=== PATIENT | male | born 1945 | race Caucasian/White ===

== ENCOUNTER 2017-10-27 17:40 | Observation (INO) | payer MEDICARE ==
[~2017-10-27] VITALS: Ht 177.8 cm; Wt 92.5 kg
[~2017-10-27 17:40] MED LIST: AMLO2.5T PO; FINA5TAB2 PO; LISI10TA3 PO; OMEGCAP PO; OMEP20TA93 PO
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
[2017-10-27 18:00] VITALS: BP 140/73; PULSE 90; RESP 18; TEMP 98.7; O2SAT 95
[2017-10-27] MEDS ORDERED: SODIUM CHLORIDE 0.9% FLUSH 10 ML FLUSH IVF PRN (18:00)
[2017-10-27] MEDS ORDERED: AMLO5TAB2 PO (18:06)
[2017-10-27 18:49] LABS: CHLORIDE 107 MEQ/L (98-107); SODIUM (NA) 139 MEQ/L (136-145)
[2017-10-27 18:53] LABS: ANION GAP 5 MEQ/L (5-15); BICARBONATE 26.6 MEQ/L (21.0-32.0); BLOOD UREA NITROGEN 16 MG/DL (7-18); MAGNESIUM 1.9 MG/DL (1.5-2.5)
--- NOTE | 2017-10-27 18:53 | RADRPT ---
EXAM DATE/TIME: 10/27/2017 18:21 [facility] COMPARISON: No previous studies available for comparison. INDICATIONS : Syncope. RADIATION DOSE: 57.27 CTDIvol (mGy) MEDICAL HISTORY : Hypertension. Gastroesophageal reflux disease. Hernia, hiatal. SURGICAL HISTORY : Tonsillectomy. ENCOUNTER: Initial ACUITY: 1 day PAIN SCALE: 0/10 LOCATION: cranial TECHNIQUE: Multiple contiguous axial images were obtained of the head. Using automated exposure control and adjustment of the mA and/or kV according to patient size, radiation dose was kept as low as reasonably achievable to obtain optimal diagnostic quality images. DICOM format image data is av ailable electronically for review and comparison. FINDINGS: CEREBRUM: The lateral ventricles are mildly prominent, borderline size for patient's age. The 3r d and 4th ventricle are normal in size. The sulci and basal cisterns are not dilated there is a 5 mm round hyperdense lesion in the anterior 3rd ventricle having appearance and location characteristic of a colloid cyst. No evidence of cavum verge or cavum septum pellucidum... No evidence of midline shift, mass lesion, hemorrhage or acute infarction. No extra-axial fluid collections are seen. POSTERIOR FOSSA: The cerebellum and brainstem are intact. The 4th ventricle is midline. The cer ebellopontine angle is unremarkable. EXTRACRANIAL: There is opacification of the right frontal, ethmoid, and visualized portions of th e axillary sinuses. Only minimal mucosal thickening in the dependent sphenoid sinus. The visualized portion of the orbits is intact. SKULL: The calvaria is intact. No evidence of skull fracture. CONCLUSION: 1. 5 mm colloid cyst in the anterior 3rd ventricle with mild dilation of the lateral ventricles. 2. Pansinus disease. Jovon Christina MD on October 27, 2017 at 18:41 Board Certified Radiologist. This report was verified electronically.
[2017-10-27 18:56] LABS: ALT (GPT) 21 U/L (12-78); AST (GOT) 29 U/L (15-37); GLOMERULAR FILTRATION RATE 60 ML/MIN (>89)
[2017-10-27 18:58] LABS: AUTOMATED NEUTROPHIL # 13.1 TH/MM3 (1.8-7.7); BASOPHIL # 0.4 TH/MM3 (0-0.2); BASOPHIL % 2.7 % (0.0-2.0); EOSINOPHIL # 0.1 TH/MM3 (0-0.4); EOSINOPHIL % 0.4 % (0.0-4.0); HEMATOCRIT 40.2 % (39.0-51.0); LYMPH % 6.8 % (9.0-44.0); LYMPHOCYTE # 1.1 TH/MM3 (1.0-4.8); MEAN CELL VOLUME 80.3 FL (80.0-100.0); MEAN CORPUSCULAR HEMOGLOBIN 24.5 PG (27.0-34.0); MEAN CORPUSCULAR HGB CONC 30.6 % (32.0-36.0); NEUT % 81.1 % (16.0-70.0); PLATELET COUNT 199 TH/MM3 (150-450); RED BLOOD COUNT 5.01 MIL/MM3 (4.50-5.90); RED CELL DISTRIBUTION WIDTH 14.4 % (11.6-17.2); TOTAL BILIRUBIN ADULT 0.3 MG/DL (0.2-1.0); WHITE BLOOD COUNT 16.1 TH/MM3 (4.0-11.0)
[2017-10-27 18:59] LABS: ALKALINE PHOSPHATASE 70 U/L (45-117); CREATINE KINASE 140 U/L (39-308)
[2017-10-27 19:03] LABS: HEMO FLAGS AUTO DIFF
[2017-10-27 19:04] LABS: APTT (PATIENT) 19.6 SEC (24.3-30.1); INTERNATIONAL NORMALIZED RATIO 1.1 RATIO; PROTHROMBIN TIME - PATIENT 11.6 SEC (9.8-11.6)
--- NOTE | 2017-10-27 19:20 | RADRPT ---
EXAM DATE/TIME: 10/27/2017 18:36 [facility] COMPARISON: CHEST SINGLE AP, October 16, 2013, 1:47. INDICATIONS : Syncopal episode today. MEDICAL HISTORY : Hypertension. SURGICAL HISTORY : None. ENCOUNTER: Initial ACUITY: 1 day PAIN SCORE: 0/10 LOCATION: Bilateral chest FINDINGS: The lungs are symmetrically aerated without local consolidative trace. The heart is mildly enlarged, stable from prior examination in 2012. There is a retrocardiac opacity with air-fluid level suggest ing a moderately large hiatus hernia. A similar appearing structure was seen on prior examination in 2012. Both hemidiaphragms are well delineated. CONCLUSION: 1. No infiltrates seen. 2. Probable large hiatus hernia. Jovon Christina MD on October 27, 2017 at 19:17 Board Certified Radiologist. This report was verified electronically.
[2017-10-27 19:25] LABS: CKMB 2.1 NG/ML (0.5-3.6)
[2017-10-27 19:31] LABS: SCAN/DIFF AUTO DIFF CONFIRMED
[2017-10-27] MEDS ORDERED: IOHEXOL 350 MG/ML 10 ML VIAL (for RAD DIAG) IVCONTRAST ONE (20:08)
[2017-10-27 20:15] VITALS: BP 151/90; PULSE 87; RESP 16; O2SAT 95
--- NOTE | 2017-10-27 20:19 | RADRPT ---
EXAM DATE/TIME: 10/27/2017 19:49 [facility] COMPARISON: CHEST SINGLE AP, October 27, 2017, 18:36. INDICATIONS : Syncope. Evaluate for embolism. IV CONTRAST: 100 cc Omnipaque 350 (iohexol) IV RADIATION DOSE: 18.99 CTDIvol (mGy) MEDICAL HISTORY : Hypertension. Gastroesophageal reflux disease. Hernia, hiatal. SURGICAL HISTORY : None. ENCOUNTER: Initial ACUITY: 1 day PAIN SCALE: 0/10 LOCATION: chest TECHNIQUE: Volumetric scanning of the chest was performed using a pulmonary embolism protocol MIP images were re constructed. Using automated exposure control and adjustment of the mA and/or kV according to patien t size, radiation dose was kept as low as reasonably achievable to obtain optimal diagnostic quality images. DICOM format image data is available electronically for review and comparison. Follow-up recommendations for detected pulmonary nodules are based at a minimum on nodule size and pa tient risk factors according to Fleischner Society Guidelines. FINDINGS: PULMONARY ARTERIES: No filling defects are seen in the pulmonary arteries through the segmental level. LUNGS: Prominent interstitial markings with some honeycombing at the peripheral 3rd of both lungs characteri stic of pulmonary fibrosis. PLEURAE: There is no pleural thickening or pleural effusion. MEDIASTINUM: Enlarged subcarinal node measuring 2.9 cm, enlarged azygos node measuring 1.7 cm and fullness in the perihilar region bilaterally suggesting mild bilateral charissa-hilar adenopathy. MISCELLANEOUS: Large size hernia with intrathoracic stomach. CONCLUSION: 1. The study is negative for pulmonary embolism. 2. Intrathoracic stomach. 3. Peripheral interstitial lung disease and evidence of adenopathy in the mediastinum and bilateral h ilar regions. Jovon Christina MD on October 27, 2017 at 20:13 Board Certified Radiologist. This report was verified electronically.
--- NOTE | 2017-10-27 20:45 | EKG ---
Date Performed: 10/27/2017 Time Performed: 18:16:02 PTAGE: 72 years EKG: Sinus rhythm NONSPECIFIC T-WAVE ABNORMALITY BORDERLINE ECG Compared to prior electrocardiogram, rate has increase d and Nonspecific T wave changes are more marked . PREVIOUS TRACING : 10/16/2013 08.11 DOCTOR: Jose Eduardo Taylor Interpretating Date/Time 10/29/2017 07:54:31
[2017-10-27] MEDS ORDERED: AMOXICILLIN/CLAVULANATE K 875 MG TAB PO ONE (21:00)
[2017-10-27] MEDS ORDERED: SODIUM CHLORIDE 0.9% FLUSH 10 ML FLUSH IV FLUSH PRN (21:15)
[2017-10-27 21:30] VITALS: BP 147/94; PULSE 88; RESP 16; O2SAT 95
[2017-10-27] MEDS ORDERED: PANTOPRAZOLE SOD 20 MG DELAYED RELEASE TAB PO PRN (21:30)
[2017-10-27 22:00] VITALS: BP 150/84; PULSE 79; RESP 18; TEMP 97.8; O2SAT 96
[2017-10-27 22:03] VITALS: BP 140/84
[2017-10-27 23:00] VITALS: PULSE 81
[2017-10-27] MEDS ORDERED: GADODIAMIDE PF 287 MG/ML 5 ML VIAL (for RAD MRI) IV PUSH ONE (23:09)
--- NOTE | 2017-10-27 23:37 | RADRPT ---
EXAM DATE/TIME: 10/27/2017 22:48 [facility] COMPARISON: No previous studies available for comparison. INDICATIONS : Syncope. Colloid cyst. CONTRAST: 18 cc Omniscan (gadodiamide) IV MEDICAL HISTORY : Hypertension. SURGICAL HISTORY : Tonsillectomy. ENCOUNTER: Subsequent ACUITY: 1 day PAIN SCORE: 0/10 LOCATION: cranial TECHNIQUE: Multiplanar, multisequence MRI of the brain was performed both prior to and following the administrat ion of paramagnetic contrast. FINDINGS: CEREBRUM: The ventricles are normal for age. No evidence of midline shift, mass lesion, hemorrhage or acute in farction. No extraaxial fluid collections are seen. The pituitary gland and suprasellar cistern are normal in configuration. WHITE MATTER: There some scattered small areas of increased signal within the cerebral white matter. POSTERIOR FOSSA: The cerebellum and brainstem are intact. The 4th ventricle is midline. The cerebellopontine angle is unremarkable. The cerebellar tonsils are normal in position. DIFFUSION IMAGING: No focal areas of restricted diffusion are seen. No evidence of acute infarction. EXTRACRANIAL: The visualized portions of the orbits are unremarkable. There is mucosal disease seen throughout the sinuses. POST-CONTRAST: No abnormal areas of parenchymal or dural enhancement. No evidence of blood-brain barrier breakdown. CONCLUSION: 1. No acute intracranial abnormality seen. 2. Scattered small focal areas of demyelination likely secondary to small vessel ischemic change. 3. Sinus disease. Miguel A Jain MD on October 27, 2017 at 23:32 Board Certified Radiologist. This report was verified electronically.
[2017-10-28] VITALS: BP 150/84; PULSE 63; RESP 18; TEMP 97.8
[2017-10-28 04:00] VITALS: BP 144/77; PULSE 70; RESP 18; TEMP 97.8; O2SAT 95
[2017-10-28 06:24] LABS: AUTOMATED NEUTROPHIL # 7.2 TH/MM3 (1.8-7.7); BASOPHIL # 0.1 TH/MM3 (0-0.2); BASOPHIL % 0.6 % (0.0-2.0); EOSINOPHIL # 0.2 TH/MM3 (0-0.4); EOSINOPHIL % 1.9 % (0.0-4.0); HEMATOCRIT 38.5 % (39.0-51.0); LYMPH % 17.2 % (9.0-44.0); LYMPHOCYTE # 1.8 TH/MM3 (1.0-4.8); MEAN CELL VOLUME 79.6 FL (80.0-100.0); MEAN CORPUSCULAR HEMOGLOBIN 24.5 PG (27.0-34.0); MEAN CORPUSCULAR HGB CONC 30.7 % (32.0-36.0); MONO % 10.1 % (0.0-8.0); NEUT % 70.2 % (16.0-70.0); PLATELET COUNT 236 TH/MM3 (150-450); RED BLOOD COUNT 4.83 MIL/MM3 (4.50-5.90); RED CELL DISTRIBUTION WIDTH 14.6 % (11.6-17.2); WHITE BLOOD COUNT 10.3 TH/MM3 (4.0-11.0)
[2017-10-28 06:33] LABS: CHLORIDE 106 MEQ/L (98-107); POTASSIUM 3.8 MEQ/L (3.5-5.1); SODIUM (NA) 140 MEQ/L (136-145)
[2017-10-28 06:37] LABS: ANION GAP 9 MEQ/L (5-15); BICARBONATE 25.2 MEQ/L (21.0-32.0)
[2017-10-28 06:38] LABS: BLOOD UREA NITROGEN 12 MG/DL (7-18)
[2017-10-28 06:41] LABS: GLOMERULAR FILTRATION RATE 83 ML/MIN (>89)
[2017-10-28 06:59] LABS: HEMO FLAGS AUTO DIFF
[2017-10-28 07:43] LABS: SCAN/DIFF AUTO DIFF CONFIRMED
[2017-10-28 08:00] VITALS: BP 152/102; PULSE 66; PULSE 79; RESP 16; TEMP 97.3; O2SAT 95
[2017-10-28] MEDS: SODIUM CHLORIDE 0.9% FLUSH 10 ML FLUSH IV FLUSH SCH ×2 (09:00→21:29)
[2017-10-28] MEDS: AMOXICILLIN/CLAVULANATE K 875 MG TAB PO SCH ×3 (09:00→21:29)
[2017-10-28] MEDS: FINASTERIDE 5 MG TAB PO SCH ×2 (09:00→10:32)
[2017-10-28] MEDS: LISINOPRIL 10 MG TAB PO SCH ×2 (09:00→10:32)
[2017-10-28] MEDS ORDERED: NON-FORMULARY DRUG (Fish Oil-Cholecalciferol (Omega-3 Fish Oil/Vitamin) 1 CAP) PO SCH (09:00)
--- NOTE | 2017-10-28 09:20 | RADRPT ---
EXAM DATE/TIME: 10/28/2017 07:51 [facility] COMPARISON: No previous studies available for comparison. INDICATIONS : Syncope. MEDICAL HISTORY : Hyperparathyroidism. Gastroesophageal reflux disease. Hiatal hernia. BPH. SURGICAL HISTORY : Tonsillectomy. Bilateral cataract. ENCOUNTER: Initial ACUITY: 1 day PAIN SCORE: 0/10 LOCATION: Bilateral neck PEAK SYSTOLIC VELOCITIES (cm/sec): ICA/CCA RATIO: Right: 0.9 Left: 1.2 ICA: Right: 96 Left: 75 CCA: Right: 110 Left: 75 ECA: Right: 127 Left: 102 VERTEBRAL: Right: 42 antegrade Left: 39 antegrade Elevated flow velocities and ICA/CCA ratios have been found to correlate with increased degrees of vessel stenosis, calculated as percentage of diameter relative to a normal segment of distal ICA/CCA FINDINGS: RIGHT CAROTID: There is no evidence for a hemodynamically significant carotid stenosis. Minimal int imal hyperplasia is present with scattered calcific plaque. LEFT CAROTID: There is no evidence for a hemodynamically significant carotid stenosis. Minimal inti mal hyperplasia is present with scattered calcific plaque. VERTEBRAL ARTERIES: Flow is antegrade in both vertebral arteries. MISCELLANEOUS: There are no ancillary masses or adenopathy. CONCLUSION: Negative examination for a hemodynamically significant carotid stenosis. Board Certified Radiologist. This report was verified electronically.
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
[2017-10-28] MEDS ORDERED: PNEUMOCOCCAL POLYVALENT INJ 25 MCG/0.5 ML SYR IM ONE (10:00)
[2017-10-28] MEDS ORDERED: INFLUENZA VIRUS VACCINE (QUADRIVALENT) 0.5 ML SYR IM ONE (10:00)
[2017-10-28] MEDS: amLODIPine BESYLATE 5 MG TAB PO SCH ×2 (10:27→10:32)
[2017-10-28 12:00] VITALS: BP 150/94; PULSE 71; RESP 14; TEMP 97.2; O2SAT 95
[2017-10-28 16:00] VITALS: BP 140/96; PULSE 71; RESP 14; TEMP 97.2; O2SAT 95
--- NOTE | 2017-10-28 19:45 | ECHRPT ---
Indication: Syncope and collapse CONCLUSIONS The left ventricular systolic function is normal with an estimated ejection fraction in the range of 55-60%. Wall thickness is normal. Normal left ventricular size. There is mild tricuspid valve regurgitation. The estimated pulmonary arterial pressure is 34 mmHg. Trace aortic valve regurgitation. There is a small pericardial effusion present. BP: / HR: 62 Rhythm: Sinus MEASUREMENTS (Male / Female) Normal Values Technical Quality:Good 2D ECHO LV Diastolic Diameter PLAX 4.0 cm 4.2 - 5.9 / 3.9 - 5.3 cm LV Systolic Diameter PLAX 3.0 cm IVS Diastolic Thickness 1.0 cm 0.6 - 1.0 / 0.6 - 0.9 cm LVPW Diastolic Thickness 1.0 cm 0.6 - 1.0 / 0.6 - 0.9 cm LV Relative Wall Thickness 0.5 LVOT Diameter 1.8 cm M-MODE Aortic Root Diameter MM 2.5 cm LA Systolic Diameter MM 2.7 cm LA Ao Ratio MM 1.1 AV Cusp Separation MM 2.1 cm DOPPLER AV Peak Velocity 130.0 cm/s AV Peak Gradient 6.8 mmHg AI Peak Velocity 328.5 cm/s AI Peak Gradient 43.2 mmHg AI Pressure Half Time 968.5 ms LVOT Peak Velocity 97.2 cm/s LVOT Peak Gradient 3.8 mmHg AV Area Cont Eq pk 1.9 cm Mitral E Point Velocity 61.7 cm/s Mitral A Point Velocity 88.8 cm/s Mitral E to A Ratio 0.7 LV E' Lateral Velocity 7.9 cm/s Mitral E to LV E' Lateral Ratio 7.8 LV E' Septal Velocity 4.5 cm/s Mitral E to LV E' Septal Ratio 13.8 TR Peak Velocity 244.0 cm/s TR Peak Gradient 23.8 mmHg Right Atrial Pressure 10.0 mmHg Pulmonary Artery Systolic Pressu 33.8 mmHg Right Ventricular Systolic Press 33.8 mmHg PV Peak Velocity 106.0 cm/s PV Peak Gradient 4.5 mmHg FINDINGS LEFT VENTRICLE The left ventricular systolic function is normal with an estimated ejection fraction in the range of 55-60%. Wall thickness is normal. Normal left ventricular size. RIGHT VENTRICLE Normal right ventricular size and systolic function. LEFT ATRIUM The left atrial size is normal. RIGHT ATRIUM The right atrial size is normal. ATRIAL SEPTUM Normal atrial septal thickness without atrial level shunting by limited color doppler interrogation. AORTA The aortic root and proximal ascending aorta are normal in size on limited imaging. MITRAL VALVE Structurally normal mitral valve. No mitral valve stenosis or regurgitation. AORTIC VALVE Trace aortic valve regurgitation. TRICUSPID VALVE There is mild tricuspid valve regurgitation. The estimated pulmonary arterial pressure is 33.8 mmHg. PULMONARY VALVE No pulmonary valve regurgitation or stenosis. VESSELS The inferior vena cava is normal in size. PERICARDIUM There is a small pericardial effusion present. Inna Rahman MD, FACC (Electronically Signed) Final Date:28 October 2017 19:43
[2017-10-28 20:00] VITALS: BP 135/84; PULSE 62; PULSE 70; RESP 20; TEMP 97.2; O2SAT 95
[2017-10-29] VITALS: BP 128/79; PULSE 64; RESP 20; TEMP 97.1; O2SAT 95
[2017-10-29 04:00] VITALS: BP 122/77; PULSE 63; RESP 20; TEMP 97.6; O2SAT 94
[2017-10-29 08:00] VITALS: BP 148/91; PULSE 61; PULSE 70; RESP 16; TEMP 97; O2SAT 98
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
[2017-10-29] MEDS: AMOXICILLIN/CLAVULANATE K 875 MG TAB PO SCH (10:31)
[2017-10-29] MEDS: SODIUM CHLORIDE 0.9% FLUSH 10 ML FLUSH IV FLUSH SCH (10:32)
[2017-10-29] MEDS: LISINOPRIL 10 MG TAB PO SCH (10:32)
[2017-10-29] MEDS: FINASTERIDE 5 MG TAB PO SCH (10:32)
[2017-10-29] MEDS: amLODIPine BESYLATE 5 MG TAB PO SCH (10:32)
[2017-10-29 12:00] VITALS: BP 134/89; PULSE 66; RESP 16; TEMP 97.2; O2SAT 98
[2017-10-29] MEDS ORDERED: ASPIRIN EC 81 MG TABEC PO SCH (12:00)
--- NOTE | 2017-10-29 13:27 | HHI.PR ---
Subjective Remarks He has no symptoms or complaints. He was seen by neurology last evening who recommended a cardiology evaluation which was just done. He was seen by Dr Reza according to the nurse and he cleared the patient for discharge to followup with him. He has a Holter monitor on currently that will be finished at 5:30 PM today. Objective Vitals Vital Signs Date Time Temp Pulse Resp B/P (MAP) Pulse Ox O2 Delivery O2 Flow Rate FiO2 10/29/17 12:00 97.2 66 16 134/89 (104) 98 10/29/17 08:00 97.0 61 16 148/91 (110) 98 10/29/17 08:00 70 10/29/17 04:00 97.6 63 20 122/77 (92) 94 10/29/17 00:00 97.1 64 20 128/79 (95) 95 10/28/17 20:00 62 10/28/17 20:00 97.2 70 20 135/84 (101) 95 10/28/17 16:00 97.2 71 14 140/96 (111) 95 Result Diagram: 10/28/17 0505 10/28/17 0505 Other Results Laboratory Tests Test 10/27/17 18:02 10/28/17 00:30 10/28/17 05:05 White Blood Count 16.1 TH/MM3 10.3 TH/MM3 Red Blood Count 5.01 MIL/MM3 4.83 MIL/MM3 Hemoglobin 12.3 GM/DL 11.8 GM/DL Hematocrit 40.2 % 38.5 % Mean Corpuscular Volume 80.3 FL 79.6 FL Mean Corpuscular Hemoglobin 24.5 PG 24.5 PG Mean Corpuscular Hemoglobin Concent 30.6 % 30.7 % Red Cell Distribution Width 14.4 % 14.6 % Platelet Count 199 TH/MM3 236 TH/MM3 Mean Platelet Volume 8.6 FL 8.5 FL Neutrophils (%) (Auto) 81.1 % 70.2 % Lymphocytes (%) (Auto) 6.8 % 17.2 % Monocytes (%) (Auto) 9.0 % 10.1 % Eosinophils (%) (Auto) 0.4 % 1.9 % Basophils (%) (Auto) 2.7 % 0.6 % Neutrophils # (Auto) 13.1 TH/MM3 7.2 TH/MM3 Lymphocytes # (Auto) 1.1 TH/MM3 1.8 TH/MM3 Monocytes # (Auto) 1.4 TH/MM3 1.0 TH/MM3 Eosinophils # (Auto) 0.1 TH/MM3 0.2 TH/MM3 Basophils # (Auto) 0.4 TH/MM3 0.1 TH/MM3 CBC Comment AUTO DIFF AUTO DIFF Differential Comment AUTO DIFF CONFIRMED AUTO DIFF CONFIRMED Prothrombin Time 11.6 SEC Prothromb Time International Ratio 1.1 RATIO Activated Partial Thromboplast Time 19.6 SEC D-Dimer Quantitative (PE/DVT) 1.52 MG/L FEU Blood Urea Nitrogen 16 MG/DL 12 MG/DL Creatinine 1.20 MG/DL 0.90 MG/DL Random Glucose 108 MG/DL 113 MG/DL Total Protein 7.1 GM/DL Albumin 3.5 GM/DL Calcium Level 8.5 MG/DL 8.1 MG/DL Magnesium Level 1.9 MG/DL Alkaline Phosphatase 70 U/L Aspartate Amino Transf (AST/SGOT) 29 U/L Alanine Aminotransferase (ALT/SGPT) 21 U/L Total Bilirubin 0.3 MG/DL Sodium Level 139 MEQ/L 140 MEQ/L Potassium Level 4.0 MEQ/L 3.8 MEQ/L Chloride Level 107 MEQ/L 106 MEQ/L Carbon Dioxide Level 26.6 MEQ/L 25.2 MEQ/L Anion Gap 5 MEQ/L 9 MEQ/L Estimat Glomerular Filtration Rate 60 ML/MIN 83 ML/MIN Total Creatine Kinase 140 U/L Creatine Kinase MB 2.1 NG/ML Troponin I LESS THAN 0.02 NG/ML LESS THAN 0.02 NG/ML LESS THAN 0.02 NG/ML Imaging Last Impressions Carotid Artery Ultrasound 10/28/17 0000 Signed Impressions: Service Date/Time: Saturday, October 28, 2017 07:51 - CONCLUSION: Negative examination for a hemodynamically significant carotid stenosis. Board Certified Radiologist. This report was verified electronically. Brain MRI 10/27/17 [id number] Signed Impressions: Service Date/Time: Friday, October 27, 2017 22:48 - CONCLUSION: 1. No acute intracranial abnormality seen. 2. Scattered small focal areas of demyelination likely secondary to small vessel ischemic change. 3. Sinus disease. Miguel A Jain MD CT Angiography 10/27/17 1927 Signed Impressions: Service Date/Time: Friday, October 27, 2017 19:49 - CONCLUSION: 1. The study is negative for pulmonary embolism. 2. Intrathoracic stomach. 3. Peripheral interstitial lung disease and evidence of adenopathy in the mediastinum and bilateral hilar regions. Jovon Christina MD Head CT [id number] Signed Impressions: Service Date/Time: Friday, October 27, 2017 18:21 - CONCLUSION: 1. 5 mm colloid cyst in the anterior 3rd ventricle with mild dilation of the lateral ventricles. 2. Pansinus disease. Jovon Christina MD Chest X-Ray [id number] Signed Impressions: Service Date/Time: Friday, October 27, 2017 18:36 - CONCLUSION: 1. No infiltrates seen. 2. Probable large hiatus hernia. Jovon Christina MD 2D echo showed normal systolic function with an EF of 55-60% and no significant valvular heart disease. Objective Remarks Exam: Pleasant white male in no distress. HEENT: Pupils equal, no scleral icterus, mouth negative. Neck: No JVD. Heart: RRR with no murmurs Lungs: Clear Abdomen: Soft, nontender Extremities: No edema Neuro: Oriented x 3, Motor and sensory intact, CN's intact A/P Assessment and Plan Assessment: --Syncope--questionable etiology. He has had no arrhythmias on telemetry while in the hospital. --Hypertension --Large hiatal hernia/GERD--stable --Chronic sinus disease on imaging study --Lymphadenopathy of bilateral hilar region and mediastinum of questionable significance --Peripheral interstitial lung disease on CT pulmonary angiography --BPH --Hx of colon polyps Plan: He has been cleared for discharge by cardiology and neurology. He will complete the Holter monitor and follow-up with Dr Reza (his recreational facilities motel manager) regarding the results. He will follow-up with his PCP (Dr Lowery) also with 1-2 weeks. I specifically told the patient to follow-up with Dr Lowery in regard to the lymphadenopathy of his thoracic region and peripheral interstitial lung disease noted on his CT pulmonary angiogram. I also sent a task interoffice to Dr Lowery (he is out of town so I could not talk personally with him) about this. I mentioned he may would need to get an outpatient PET/CT scan of the chest to see any increased uptake in the lymph nodes and also see a property management specialist about the possible peripheral interstitial lung disease. Patient will followup with Dr Lowery. I did not evaluate this in the hospital because he is asymptomatic from a pulmonary standpoint and a PET/scan cannot be done in the hospital. He will continue his home medications. He will take a baby aspirin 81mg daily. I will continue him on Augmentin 875mg twice a day for 7 days for his sinus disease. Mat Fisher MD Oct 29, 2017 13:27
[2017-10-29] MEDS ORDERED: ECASA81 PO (13:37)
[2017-10-29] MEDS ORDERED: AMOX875T2 PO (13:37)
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
--- NOTE | 2017-11-02 10:36 | HM ---
Date Performed: 10/28/2017 Time Performed: 18:45:00 HOOKUP DATE: 10/28/17 06:45:00 PM Wed ANALYSIS START TIME: 10/28/2017 6:50:00 PM ANALYSIS END TIME: 10/29/2017 2:56:31 PM PATIENT AGE: 72 PATIENT HEIGHT: 70 PATIENT WEIGHT: 202 DRUG LIST: ROOM # [id number] / D/Cd HOME PATIENT DIAGNOSIS: SYNCOPE CCOLLOID CYST PULMONARY FIBROSIS TEST NARRATIVE: The patient's average heart rate was 70 BPM. No episodes of tachycardia wer e noted. Heart rates less than 50 BPM were noted < 1% of the time. 3 pauses exceeding 2.0 secon ds were noted. The longest pause of 2.7 seconds occurred at 07:03:55 PM Wed. 203 ventricular ecto pics, which represented < 1% of the total beat count, were noted. The highest ventricular ectopic fr equency occurred from 09:00 AM to 10:00 AM Aym. During this time 28 VE(s) occurred. Ventricular ect opics were observed as 203 isolated beat(s) only. No couplets or runs were noted. 60 supraventri cular ectopics, which represented < 1% of the total beat count, were noted. The highest supraventric ular ectopic frequency occurred from 01:00 AM to 02:00 AM Amy. During this time 7 SVE(s) occurred. No episodes of ST depression (defined as -1.0 mm or more) were noted in channel 1. No episodes of ST depression (defined as -1.0 mm or more) were noted in channel 2. No episodes of ST depression (d efined as -1.0 mm or more) were noted in channel 3. NO DIARY RETURNED TEST INTERPRETATION: Sinus rhythm Rare pauses up to 2.7 sec PVCs PACs Nonsustained atrial tachycardia Signed by : Inna Rahman
== END 2017-10-29 14:00 | disposition home or self-care (01) ==
LOC: PHED 17:40 → PHEDA 21:02 → PH3A 22:10
PROVIDERS: ADMIT Family Medicine; ATTEND Family Medicine
DX: R55 Syncope and collapse (principal); R61 Generalized hyperhidrosis; I10 Essential (primary) hypertension; J84.10 Pulmonary fibrosis, unspecified; E78.00 Pure hypercholesterolemia, unspecified; J32.4 Chronic pansinusitis; G93.0 Cerebral cysts; I47.1 Supraventricular tachycardia; I49.3 Ventricular premature depolarization; K44.9 Diaphragmatic hernia without obstruction or gangrene; K21.9 Gastro-esophageal reflux disease without esophagitis; R59.0 Localized enlarged lymph nodes; N40.0 Benign prostatic hyperplasia without lower urinary tract symptoms; F17.290 Nicotine dependence, other tobacco product, uncomplicated; Z79.899 Other long term (current) drug therapy; Z86.010 Personal history of colon polyps; Z23 Encounter for immunization
CPT/HCPCS: 70450; 70553; 71010; 71275; 80048; 80053; 82550; 82552; 83735; 84484; 85025; 85379; 85610; 85730; 90732; 93005; 93225; 93226; 93306; 93880; 96372; 99285; A9579; G0378; Q2038; Q9967; 90686

== ENCOUNTER → 2018-01-18 | Outpatient (CLI) | payer MEDICARE ==
[~2018-01-18] MED LIST changes: -AMLO2.5T PO; +AMLO5TAB2 PO; +AMOX875T2 PO; +ECASA81 PO
--- NOTE | 2018-01-20 09:26 | RSPPFT ---
DATE OF PROCEDURE: 01/18/18 COMMENTS: Spirometry with FVC of 3.4, FEV1 of 2.3, FEV1/FVC ratio at 69%. Slow vital capacity is 83% of predicted. Diffusion capacity is 65% and normal when corrected for alveolar volume. Room air arterial blood gases show pH of 7.41, PCO2 of 39, PO2 of 91. IMPRESSION: 1. Moderate airways obstruction. 2. Associated mild airways restriction. 3. Reduced diffusion but normal when corrected for alveolar volume. 4. Adequate oxygenation and alveolar ventilation.
== END ==
LOC: PHRSP 08:50
PROVIDERS: ATTEND Internal Medicine Sleep Medicine
DX: R06.89 Other abnormalities of breathing (principal)
CPT/HCPCS: 36600; 82805; 94060; 94726; 94729